=== PATIENT | male | born 1930 | race Caucasian/White ===

== ENCOUNTER 2018-09-20 21:08 | Inpatient (IN) | payer MEDICARE, OTHER ==
[~2018-09-20] VITALS: Ht 172.7 cm; Wt 86.0 kg
--- NOTE | 2018-09-20 21:08 | NUR ---
BIB EMS for a syncopal episode at the [place]. Pt has a pacemaker, and is in a paced rhythm. Per EMS, pt was pale, cool, and diaphoretic on scene. Pt without any complaint for RN at this time.
--- NOTE | 2018-09-20 21:18 | NUR ---
Dr. Cifuentes at bedside to evaluate pt.
[2018-09-20] MEDS ORDERED: ASPI-515 PO (21:24)
--- NOTE | 2018-09-20 21:46 | NUR ---
christophe rn: report of pt from [facility].
[2018-09-20 22:04] LABS: BASOPHILS # (AUTO) 0.01 x10^3/uL (0-0.1); BASOPHILS % (AUTO) 0 % (0-1); EOSINOPHILS % (AUTO) 0 % (1-7); LYMPHOCYTES # (AUTO) 0.59 x10^3/uL (1-3.4); LYMPHOCYTES % (AUTO) 13 % (22-44); MD NO; MEAN CORPUSCULAR HEMOGLOBIN 32.7 pg (27.5-34.5); MEAN CORPUSCULAR HGB CONC 34.6 g/dL (33.2-36.2); MEAN CORPUSCULAR VOLUME 94.5 fL (81-97); MEAN PLATELET VOLUME 7.1 fL (7.4-10.4); MONOCYTES # (AUTO) 0.49 x10^3/uL (0.2-0.8); MONOCYTES % (AUTO) 11 % (2-9); NEUTROPHILS # (AUTO) 3.58 x10^3/uL (1.8-6.8); NEUTROPHILS % (AUTO) 77 % (42-75); PLATELET COUNT 233 x10^3/uL (130-400); RED BLOOD COUNT 3.83 x10^6/uL (4.38-5.82)
[2018-09-20 22:13] LABS: ALANINE AMINOTRANSFERASE 23 U/L (12-78); ALBUMIN 3.5 g/dL (3.4-5.0); ANION GAP 8 mmol/L (5-15); CHLORIDE 104 mmol/L (98-107); CREATININE 1.06 mg/dL (0.7-1.3)
[2018-09-20 22:18] LABS: ALKALINE PHOSPHATASE 37 U/L (45-117); BILIRUBIN,TOTAL 0.9 mg/dL (0.2-1.0); TROPONIN I < 0.015 ng/mL (0.000-0.045)
[2018-09-20] MEDS ORDERED: ONDANSETRON 2MG/ML, 2ML IVPush PRN (23:30)
--- NOTE | 2018-09-20 23:30 | NUR ---
Dr. Haile at bedside to evaluate pt for admission.
[2018-09-21] MEDS ORDERED: hydrALAzine 20 MG/ML, 1ML IVPush PRN
[2018-09-21] MEDS ORDERED: ONDANSETRON 2MG/ML, 2ML IVPush PRN
[2018-09-21] MEDS ORDERED: ACETAMINOPHEN 325 MG TABLET PO PRN
[2018-09-21] MEDS ORDERED: GABAPENTIN 300 MG CAPSULE PO PRN
[2018-09-21] MEDS ORDERED: DOCUSATE 100 MG CAPSULE PO PRN
--- NOTE | 2018-09-21 01:14 | NUR ---
Pt sleeping on gurney, dex hugger and blanket in place.
--- NOTE | 2018-09-21 02:44 | NUR ---
Telephone SBAR report called to Breanne FIGUEROA. Pt made aware of new room assignment.
[2018-09-21] MEDS ORDERED: ENOXAPARIN 40 MG/0.4 ML ONE (03:13)
[2018-09-21] MEDS: ENOXAPARIN 40 MG/0.4 ML SQ SCH ×2 (03:20→23:59)
[2018-09-21 06:16] LABS: ANION GAP 8 mmol/L (5-15); CALCIUM 8.3 mg/dL (8.5-10.1); CHLORIDE 105 mmol/L (98-107)
[2018-09-21 06:24] LABS: CHOL/HDL RATIO 5.1; CHOLESTEROL, TOTAL 208 mg/dL (140-239); CREATININE 0.86 mg/dL (0.7-1.3); HDL CHOL % 20 % (26-37); HDL CHOLESTEROL (DIRECT) 41 mg/dL (40-60); LDL CHOLESTEROL,CALCULATED 139 mg/dL (54-169); LDL/HDL RATIO 3.4 (0.5-3.0); TRIGLYCERIDES 142 mg/dL (50-200); TROPONIN I < 0.015 ng/mL (0.000-0.045); VLDL CHOLESTEROL 28 mg/dL (0-25)
[2018-09-21 06:58] LABS: BASOPHILS # (AUTO) 0.01 x10^3/uL (0-0.1); BASOPHILS % (AUTO) 0 % (0-1); EOSINOPHILS # (AUTO) 0.03 x10^3/uL (0-0.4); EOSINOPHILS % (AUTO) 1 % (1-7); LYMPHOCYTES # (AUTO) 0.55 x10^3/uL (1-3.4); LYMPHOCYTES % (AUTO) 13 % (22-44); MD SCAN; MEAN CORPUSCULAR HEMOGLOBIN 32.5 pg (27.5-34.5); MEAN CORPUSCULAR HGB CONC 34.4 g/dL (33.2-36.2); MEAN CORPUSCULAR VOLUME 94.5 fL (81-97); MONOCYTES # (AUTO) 0.56 x10^3/uL (0.2-0.8); MONOCYTES % (AUTO) 13 % (2-9); NEUTROPHILS # (AUTO) 3.05 x10^3/uL (1.8-6.8); NEUTROPHILS % (AUTO) 73 % (42-75); PLATELET COUNT 225 x10^3/uL (130-400); RED BLOOD COUNT 3.78 x10^6/uL (4.38-5.82); RED CELL DISTRIBUTION WIDTH 13.5 % (9.4-14.8)
[2018-09-21 06:59] LABS: MEAN PLATELET VOLUME 8.2 fL (7.4-10.4)
[2018-09-21 08:31] LABS: TROPONIN I < 0.015 ng/mL (0.000-0.045)
[2018-09-21 09:00] VITALS: BP 104/56
[2018-09-21] MEDS: ASPIRIN 81 MG TABLET EC PO SCH (09:13)
[2018-09-21] MEDS: TAMSULOSIN 0.4 MG CAP.ER.24H PO SCH (09:14)
[2018-09-21] MEDS: VALACYCLOVIR 500MG TABLET PO SCH ×4 (09:14→23:58)
[2018-09-21 12:58] VITALS: BP 98/59
[2018-09-21 20:30] VITALS: BP 86/51
[2018-09-22 01:12] VITALS: BP 90/58
[2018-09-22 07:22] VITALS: BP 97/60
[2018-09-22] MEDS: ASPIRIN 81 MG TABLET EC PO SCH (08:24)
[2018-09-22] MEDS: TAMSULOSIN 0.4 MG CAP.ER.24H PO SCH (08:24)
[2018-09-22] MEDS: VALACYCLOVIR 500MG TABLET PO SCH (08:25)
[2018-09-22] MEDS ORDERED: OMNIPAQUE 350 MG/ML, 100ML BOTTLE ONE (09:14)
[2018-09-22] MEDS ORDERED: FUROSEMIDE 20 MG/2 ML IV SCH (13:00)
[2018-09-22 13:02] VITALS: BP 89/54
[2018-09-22 13:11] VITALS: BP 94/45
[2018-09-22] MEDS ORDERED: APIX5TAB PO (13:25)
[2018-09-22] MEDS ORDERED: VALA500T PO (13:25)
[2018-09-22] MEDS ORDERED: APIXABAN 5 MG TABLET PO SCH (21:00)
== END 2018-09-22 15:17 | disposition home or self-care (01) | DRG 308 ==
LOC: ED 22:33 → EDIP 23:12 → 5SO 09-21 03:14
PROVIDERS: ADMIT Internal Medicine; ATTEND Internal Medicine
PROC: 4B02XSZ Measurement of Cardiac Pacemaker, External Approach (ICD-10-PCS; principal; 2018-09-20)
DX: I49.9 Cardiac arrhythmia, unspecified (principal); I50.33 Acute on chronic diastolic (congestive) heart failure; R55 Syncope and collapse; D64.9 Anemia, unspecified; I44.7 Left bundle-branch block, unspecified; I48.91 Unspecified atrial fibrillation; B02.9 Zoster without complications; N40.0 Benign prostatic hyperplasia without lower urinary tract symptoms; Z79.82 Long term (current) use of aspirin; Z95.0 Presence of cardiac pacemaker
CPT/HCPCS: 36415; 71045; 71275; 80048; 80053; 80061; 83735; 84100; 84484; 85025; 93005; 93306; 96372; 99285; G0378; J1650; Q9967